=== PATIENT | male | born 1950 | race Caucasian/White ===

== ENCOUNTER 2020-10-22 10:32 | Inpatient (IN) | payer MEDICARE ==
[~2020-10-22] VITALS: Ht 167.6 cm; Wt 63.6 kg
[~2020-10-22 10:32] MED LIST: AMLO10TA PO; AMLO2.5T2 PO; ASPI-1265 PO; ATOR20TA66 PO; FLO0.1T PO; HYDR-4069 PO; LISI40TA4 PO; METO-467 PO; MULT-1085 PO; SODI1TAB23 PO
[2020-10-22 10:55] LABS: BASOPHILS % (AUTO) 0.1 % (0-1); EOSINOPHILS % (AUTO) 0 % (0-6); HEMATOCRIT 34.6 % (42.0-52.0); HEMOGLOBIN 11.4 g/dl (14.0-17.9); LYMPHOCYTES # (AUTO) 0.7 X10'3 (1.1-4.8); LYMPHOCYTES % (AUTO) 4.1 % (21-51); MEAN CORPUSCULAR HGB CONC 33.1 g/dL (33.0-36.5); MEAN CORPUSCULAR VOLUME 84.7 FL (78-98); MEAN PLATELET VOLUME 7.2 FL (7.4-10.4); MONOCYTES # (AUTO) 0.8 X10'3 (0-0.9); MONOCYTES % (AUTO) 4.9 % (2-12); NEUTROPHILS # (AUTO) 15.1 X10'3 (1.8-7.7); NEUTROPHILS % (AUTO) 90.9 % (42-75); PLATELET COUNT 350 X10'3 (140-440); RED BLOOD COUNT 4.08 X10'6 (4.70-6.10); RED CELL DISTRIBUTION WIDTH 13.7 % (11.5-14.5); WHITE BLOOD COUNT 16.6 X10'3 (4.5-11.0)
[2020-10-22 11:11] LABS: ALANINE AMINOTRANSFERASE 12 U/L (12-78); ALBUMIN 2.3 G/DL (3.4-5.0); ALBUMIN/GLOBULIN RATIO 0.4 (1.1-1.5); ALKALINE PHOSPHATASE 126 IU/L (46-116); ANION GAP 12 (8-16); ASPARTATE AMINO TRANSFERASE 18 U/L (10-37); BILIRUBIN,TOTAL 0.5 MG/DL (0.1-1.0); BLOOD UREA NITROGEN 18 MG/DL (7-18); BUN/CREATININE RATIO 16.1 (5.4-32.0); CALCIUM 8.4 MG/DL (8.5-10.1); CHLORIDE 92 MMOL/L (99-107); CREATININE 1.12 MG/DL (0.60-1.10); GLUCOSE 99 MG/DL (70-104); SODIUM 127 MMOL/L (135-145); TOTAL CARBON DIOXIDE 23.4 MMOL/L (24-32); TOTAL PROTEIN 8.1 G/DL (6.4-8.2); eGFR 65 ML/MIN
[2020-10-22] MEDS ORDERED: normal saline 1000ML IV soln IVB ONE (11:20)
[2020-10-22 11:30] LABS: ETHANOL < 0.010 GM/DL (0.0-0.010)
[2020-10-22] MEDS ORDERED: azithromycin/NS 500mg/250ml 250 ML IV ONE (12:00)
[2020-10-22] MEDS ORDERED: CefTRIAXone 2gm/D5W 50ml BAG 50 ML IV ONE (12:00)
[2020-10-22 12:31] LABS: CLARITY,URINE SLIGHTLY CLOUDY (Clear); GLUCOSE, URINE NEGATIVE (Neg); KETONES,URINE TRACE mg/dl (Neg); LEUKOCYTE ESTERASE ,URINE NEGATIVE (Neg); NITRITES, URINE NEGATIVE (Neg); OCCULT BLOOD,URINE NEGATIVE (Neg); PH,URINE 5.5 (4.8-8.0); PROTEIN,URINE 30 mg/dl (Neg)
[2020-10-22 12:36] LABS: COLOR,URINE DARK YELLOW (Yellow); UA COLLECTION TYPE STRAIGHT CATH
[2020-10-22] MEDS ORDERED: iohexol 350MG/ML 100ml bottle IV ONE (12:39)
[2020-10-22 12:40] LABS: FINE GRANULAR CAST 0-3 /LPF (NEGATIVE); MUCUS STRANDS MODERATE /LPF (Neg)
[2020-10-22 12:41] LABS: AMORPHOUS URATES 1+; COARSE GRANULAR CAST 0-3 /LPF (NEGATIVE)
[2020-10-22 12:42] LABS: RBC,URINE NONE SEEN /HPF (0-2); WBC,URINE 0-4 /HPF (0-4)
[2020-10-22 12:43] LABS: BACTERIA,URINE NONE SEEN /HPF (Neg); SQUAMOUS EPITHELIAL CELL,UR FEW /LPF (FEW)
[2020-10-22 13:22] LABS: URINE AMPHETAMINE SCREEN NEGATIVE (Neg); URINE BARBITUATE SCREEN NEGATIVE (Neg); URINE BENZODIAZEPINES SCREEN NEGATIVE (Neg); URINE CANNABINOID SCREEN NEGATIVE (Neg); URINE COCAINE SCREEN NEGATIVE (Neg); URINE METHADONE SCREEN NEGATIVE (Neg); URINE OPIATE SCREEN NEGATIVE (Neg); URINE PHENCYCLIDINE SCREEN NEGATIVE (Neg)
[2020-10-22] MEDS ORDERED: acetaminophen 325mg tablet PO PRN ×2 (14:55)
[2020-10-22] MEDS ORDERED: morphine 2 MG/ML inj. syringe IV PRN ×2 (14:55)
[2020-10-22] MEDS ORDERED: mag hydrox/Alum hydrox/simeth 30ml oral suspension PO PRN (14:55)
[2020-10-22] MEDS ORDERED: magnesium hydroxide 30ml (MOM) UD suspension PO PRN (14:55)
[2020-10-22] MEDS ORDERED: HYDROcodone/acetaminophen 5mg/325mg tablet PO PRN (14:55)
[2020-10-22] MEDS ORDERED: ondansetron/PF 4mg/2ml inj IV PRN (14:55)
[2020-10-22] MEDS ORDERED: LISI-600 PO (15:13)
[2020-10-22] MEDS ORDERED: METO25TA6 PO (15:18)
--- NOTE | 2020-10-22 16:45 | NUR ---
AWAITING FOR ROOM ASSIGNMENT.NEPHEW AT BEDSIDE.
--- NOTE | 2020-10-22 18:35 | NUR ---
Still awaiting for room assignment.
--- NOTE | 2020-10-22 19:16 | NUR ---
PT WITH STABLE VS. AWAITIN GIPA. PT IS POLITE AND COOPERATIVE. REPORTS NO PAIN AND NO SOB AT THIS TIME. STATES NO NEEDS AT THIS TIME.
--- NOTE | 2020-10-22 19:32 | NUR ---
PATIENT SITTING IN BED RR EVEN UN LABORED NO OBSERVABLE S/S OF ACUTE STRESS AT THIS TIME WILL CONTINUE TO MONITOER, PATIENT ANXIOUS TO GET ROOM UP STAIRS
--- NOTE | 2020-10-22 19:43 | NUR ---
PATIENT IN POSSESION OF CALL LIGHT IF NEEDING HELP VERBALIZED UNDERSTANDING THE PROCESS OF ADMISSION NO NEEDS AT THIS TIME
[2020-10-22] MEDS: furosemide 20 MG/2 ML vial IV SCH (20:28)
--- NOTE | 2020-10-22 21:16 | NUR ---
Patient in room ED 6. I have received report from Chadwick COLINDRES and had the opportunity to ask questions and assume patient care.
[2020-10-22 22:00] VITALS: BP 112/62
[2020-10-23 02:00] VITALS: BP 96/53
[2020-10-23 06:27] LABS: BASOPHILS % (AUTO) 0.2 % (0-1); EOSINOPHILS # (AUTO) 0.1 X10'3 (0-0.9); EOSINOPHILS % (AUTO) 0.7 % (0-6); HEMATOCRIT 32.1 % (42.0-52.0); HEMOGLOBIN 10.8 g/dl (14.0-17.9); LYMPHOCYTES # (AUTO) 0.8 X10'3 (1.1-4.8); LYMPHOCYTES % (AUTO) 7.2 % (21-51); MEAN CORPUSCULAR HEMOGLOBIN 28.3 PG (27.0-31.0); MEAN CORPUSCULAR HGB CONC 33.8 g/dL (33.0-36.5); MEAN CORPUSCULAR VOLUME 83.7 FL (78-98); MEAN PLATELET VOLUME 7.6 FL (7.4-10.4); MONOCYTES # (AUTO) 0.9 X10'3 (0-0.9); MONOCYTES % (AUTO) 7.9 % (2-12); NEUTROPHILS # (AUTO) 9.2 X10'3 (1.8-7.7); PLATELET COUNT 370 X10'3 (140-440); RED BLOOD COUNT 3.83 X10'6 (4.70-6.10); RED CELL DISTRIBUTION WIDTH 13.7 % (11.5-14.5); WHITE BLOOD COUNT 10.9 X10'3 (4.5-11.0)
[2020-10-23 06:30] VITALS: BP 102/58
--- NOTE | 2020-10-23 06:40 | NUR ---
Problems reprioritized. Patient report given, questions answered & plan of care reviewed with Rebecca COLINDRES.
--- NOTE | 2020-10-23 06:40 | NUR ---
Patient in room PCU 3016. I have received report from Kristal COLINDRES and had the opportunity to ask questions and assume patient care.
--- NOTE | 2020-10-23 06:41 | NUR ---
Problems reprioritized. Patient report given, questions answered & plan of care reviewed with Rebecca COLINDRES.
[2020-10-23 06:43] LABS: ANION GAP 9 (8-16); BLOOD UREA NITROGEN 22 MG/DL (7-18); BUN/CREATININE RATIO 21.4 (5.4-32.0); CALCIUM 8.2 MG/DL (8.5-10.1); CHLORIDE 100 MMOL/L (99-107); CREATININE 1.03 MG/DL (0.60-1.10); GLUCOSE 77 MG/DL (70-104); POTASSIUM 4.2 MMOL/L (3.5-5.1); SODIUM 133 MMOL/L (135-145); eGFR 72 ML/MIN
[2020-10-23] MEDS ORDERED: enoxaparin 40mg/0.4ml syringe SUBCUT SCH (08:00)
[2020-10-23] MEDS ORDERED: CefTRIAXone/D5W-Rocephin 1gm 50 ML IV SCH (08:00)
[2020-10-23] MEDS ORDERED: azithromycin/NS 500mg/250ml 250 ML IV SCH (08:00)
[2020-10-23] MEDS ORDERED: FURO-150 PO (09:02)
[2020-10-23] MEDS ORDERED: LEVO500T89 PO (09:02)
[2020-10-23] MEDS: furosemide 20 MG/2 ML vial IV SCH (09:23)
--- NOTE | 2020-10-23 09:43 | NUR ---
O2 Sat at rest on room air:_94__% If below 89%: Recovery O2 Sat at rest on ___LPM:___%:___% via (mask/nasal cannula, etc..) No further documentation is necessary. If O2 Sat did not drop below 89% on room air,ambulate patient on room air. O2 Sat while ambulating on room air:___% Recovery O2 Sat while ambulating on ___LPM:___% No further documentation is necessary. If patient does not drop below 89% while ambulating, he/she does not qualify for home O2.
--- NOTE | 2020-10-23 10:26 | NUR ---
Discharge instructions given to patient, patient verbalized understanding of all instructions made. New prescriptions were e-sent to pharmacy on file. Instructed patient to ensure he has all his belongings with him before leaving the hospital. Zithromax IV is currently being administered. Addendum: 10/23/20 at 1028 by Rebecca Sylvester RN metrology manager was paged to request home health for this patient
== END 2020-10-23 11:14 | disposition home health service (06) | DRG 202 ==
LOC: ER 10:32 → ED HOLD 14:54 → PCU 3S 21:27
PROVIDERS: ADMIT Internal Medicine; ATTEND Internal Medicine
PROC: B32T1ZZ Computerized Tomography (CT Scan) of Left Pulmonary Artery using Low Osmolar Contrast (ICD-10-PCS; principal; 2020-10-22)
PROC: B3201ZZ Computerized Tomography (CT Scan) of Thoracic Aorta using Low Osmolar Contrast (ICD-10-PCS; 2020-10-22)
PROC: B32S1ZZ Computerized Tomography (CT Scan) of Right Pulmonary Artery using Low Osmolar Contrast (ICD-10-PCS; 2020-10-22)
DX: J20.9 Acute bronchitis, unspecified (principal); I50.33 Acute on chronic diastolic (congestive) heart failure; E87.1 Hypo-osmolality and hyponatremia; M48.55XA Collapsed vertebra, not elsewhere classified, thoracolumbar region, initial encounter for fracture; I11.0 Hypertensive heart disease with heart failure; I20.9 Angina pectoris, unspecified; I95.9 Hypotension, unspecified; R00.0 Tachycardia, unspecified; M85.80 Other specified disorders of bone density and structure, unspecified site; R59.9 Enlarged lymph nodes, unspecified; D64.9 Anemia, unspecified; D72.829 Elevated white blood cell count, unspecified; E78.00 Pure hypercholesterolemia, unspecified; E78.5 Hyperlipidemia, unspecified; F17.210 Nicotine dependence, cigarettes, uncomplicated; Z79.899 Other long term (current) drug therapy; Z86.718 Personal history of other venous thrombosis and embolism
CPT/HCPCS: 36415; 71045; 71275; 80048; 80053; 80305; 80320; 81001; 83605; 83880; 84145; 84484; 85025; 87040; 87081; 87502; 87503; 87635; 93005; 93306; 93308; 96361; 96365; 96366; 96368; 99285; C9803; G0378; J0456; J0696; J1650; J1940; J7030; Q9967

== ENCOUNTER 2024-05-11 09:04 | Outpatient (CLI) | payer MEDICARE ==
[~2024-05-11 09:04] MED LIST changes: -AMLO10TA PO; -AMLO2.5T2 PO; -ASPI-1265 PO; -FLO0.1T PO; -HYDR-4069 PO; -LISI40TA4 PO; -METO-467 PO; -SODI1TAB23 PO
[2024-05-11] MEDS ORDERED: iohexol 350 MG/ML 50ML vial IV ONE (09:21)
[2024-05-11] MEDS ORDERED: iohexol 350MG/ML 100ml bottle IV ONE (09:21)
[2024-05-11 09:36] LABS: ALBUMIN 3.2 G/DL (3.4-5.0); ANION GAP 4 (8-16); BLOOD UREA NITROGEN 8 MG/DL (7-18); BUN/CREATININE RATIO 7.1 (10.0-20.0); CALCIUM 8.7 MG/DL (8.5-10.1); CHLORIDE 104 MMOL/L (99-107); CREATININE 1.12 MG/DL (0.60-1.10); POTASSIUM 4.2 MMOL/L (3.5-5.1); SODIUM 138 MMOL/L (135-145); TOTAL CARBON DIOXIDE 29.7 MMOL/L (24-32); eGFR 64 ML/MIN
[2024-05-11 09:37] LABS: GLUCOSE 106 MG/DL (70-104)
== END 2024-05-11 23:59 | disposition home or self-care (01) ==
LOC: 64 CT 09:04
PROVIDERS: ATTEND Internal Medicine Interventional Cardiology
DX: I70.213 Atherosclerosis of native arteries of extremities with intermittent claudication, bilateral legs (principal); I65.23 Occlusion and stenosis of bilateral carotid arteries; I70.0 Atherosclerosis of aorta; E78.5 Hyperlipidemia, unspecified; N26.1 Atrophy of kidney (terminal); I25.10 Atherosclerotic heart disease of native coronary artery without angina pectoris
CPT/HCPCS: 36415; 75635; 80048; Q9967